=== PATIENT | female | born 1935 | race Caucasian/White ===

== ENCOUNTER 2017-04-05 23:07 | Emergency (ER) | payer BC, OTHER ==
[~2017-04-05] VITALS: Ht 149.9 cm; Wt 54.4 kg
[~2017-04-05 23:07] MED LIST: ARICEPT5 MG PO; ASPIRIN81 M1 PO; CELEXA20 MG PO; COZAAR50 MG PO; DITROPAN5 MG PO; GLUCOPHAGE XR500 MG PO; KENALOG 0.1%15 GM TP; MOTRIN600 MG PO; ORETIC25 MG PO; PRILOSEC20 M1; PRILOSEC40 MG PO; ZOCOR20 MG PO
[2017-04-05 23:11] VITALS: BP 190/100
--- NOTE | 2017-04-05 23:21 | NUR ---
BIB WHEELCHAIR TO ER BED 3
--- NOTE | 2017-04-05 23:24 | NUR ---
81 Y/O F W/C/O EPIGASTRIC PAIN, NAUSEA, AND VOMITING X TODAY. DENIES ANY CHEST PAIN. BP 191/94 ER MD NOTIFIED. PT ON MONITOR. EKG TO BE DONE. MED HX HTN, DM AND COLON SURGERY IN 1981 FOR TWISTED COLON.
[2017-04-05] MEDS ORDERED: ONDANSETRON 4 MG/2 ML VIAL IVP ONE (23:35)
[2017-04-05] MEDS ORDERED: MORPHINE SULFATE 2 MG/ML SYR IVP ONE (23:35)
[2017-04-06] MEDS ORDERED: cefTRIAXone 500 MG VIAL ONE (02:08)
--- NOTE | 2017-04-06 02:19 | NUR ---
Patient appears to be resting comfortably in bed. Vital Signs within normal limits. Respirations even and unlabored.
[2017-04-06 02:43] VITALS: BP 141/74
--- NOTE | 2017-04-06 02:44 | NUR ---
Patient discharged with v/s stable. Written and verbal after care instructions given and explained. Patient alert, oriented and verbalized understanding of instructions. Ambulatory with steady gait. All questions addressed prior to discharge. ID band removed. Patient advised to follow up with PMD. Rx of CIPROFLOXACIN 500MG,ZOFRAN 4MG given. Patient educated on indication of medication including possible reaction and side effects. Opportunity to ask questions provided and answered.
== END 2017-04-06 02:43 | disposition home or self-care (01) ==
LOC: MED 23:07
DX: A08.4 Viral intestinal infection, unspecified (principal); E11.9 Type 2 diabetes mellitus without complications; I10 Essential (primary) hypertension; Z79.82 Long term (current) use of aspirin; Z79.899 Other long term (current) drug therapy
CPT/HCPCS: 36415; 80053; 81001; 82150; 83605; 83690; 84484; 85025; 87040; 93005; 96365; 96375; 99285; J0696; J2405; J7060